=== PATIENT | female | born 1950 | race Caucasian/White ===

== ENCOUNTER 2020-04-10 08:18 | Outpatient (CLI) | payer OTHER | END 2020-04-10 08:48 | disposition home or self-care (01) | LOC: EDBD 08:18 → NUCLEAR 08:18 | PROVIDERS: ATTEND Internal Medicine Cardiovascular Disease | DX: R94.31 Abnormal electrocardiogram [ECG] [EKG] (principal); I50.20 Unspecified systolic (congestive) heart failure | CPT/HCPCS: 78452; 93017; A9500 ==

== ENCOUNTER 2020-06-25 12:04 | Emergency (ER) | payer OTHER ==
[~2020-06-25] VITALS: Ht 165.1 cm; Wt 72.6 kg
[2020-06-25] MEDS ORDERED: LORAZEPAM2 MG PO (12:19)
[2020-06-25] MEDS ORDERED: GLYCOPYRROLATE2 MG PO (12:19)
[2020-06-25] MEDS ORDERED: INTESTINEX680 M1 PO (12:19)
[2020-06-25] MEDS ORDERED: TENORMIN25 MG PO (12:20)
[2020-06-25] MEDS ORDERED: SYNTHROID75 MCG PO (12:20)
[2020-06-25] MEDS ORDERED: EFFEXOR XR150 MG PO (12:21)
[2020-06-25] MEDS ORDERED: PROCTOFOAM-HC 110 GM RECTAL (19:52)
[2020-06-25] MEDS ORDERED: KETO10TA2 PO (19:52)
== END 2020-06-25 20:46 | disposition home or self-care (01) ==
LOC: ER 12:04
DX: R10.31 Right lower quadrant pain (principal)